=== PATIENT | female | born 2000 | race Two or more races ===

== ENCOUNTER 2022-03-21 19:15 | Emergency (ER) | payer OTHER ==
[~2022-03-21] VITALS: Ht 172.7 cm; Wt 57.6 kg
[2022-03-21] MEDS ORDERED: TRI-SPRINTEC T1 EACH PO (20:36)
[2022-03-21] MEDS ORDERED: CETIRIZINE HCL10 MG PO (20:36)
[2022-03-21] MEDS ORDERED: IVERMECTIN3 MG PO (20:56)
[2022-03-21] MEDS ORDERED: CLOTRIMAZOLE-BE15 GM TOP (20:56)
== END 2022-03-21 21:43 | disposition home or self-care (01) ==
LOC: ER 19:15
DX: B86 Scabies (principal)